=== PATIENT | male | born 1995 | race Caucasian/White ===

== ENCOUNTER 2017-01-12 20:02 | Emergency (ER) | payer OTHER ==
[~2017-01-12] VITALS: Ht 188 cm; Wt 98.6 kg
[2017-01-13 00:43] VITALS: BP 128/68
[2017-01-13] MEDS ORDERED: PRED20TA PO (00:55)
== END 2017-01-13 01:57 | disposition home or self-care (01) ==
LOC: M ED 20:02
DX: L25.9 Unspecified contact dermatitis, unspecified cause (principal)

== ENCOUNTER → 2017-05-06 | Outpatient (REF) | payer OTHER ==
[~2017-05-06] MED LIST: PRED20TA PO
== END ==
LOC: M SFHCLERA 18:20
PROVIDERS: ATTEND Nurse Practitioner Family
DX: J02.9 Acute pharyngitis, unspecified (principal)